=== PATIENT | male | born 1930 | race Caucasian/White ===

== ENCOUNTER 2018-04-03 10:27 | Inpatient (IN) | payer MEDICARE, BC ==
[~2018-04-03] VITALS: Ht 177.8 cm; Wt 120.3 kg
[~2018-04-03 10:27] MED LIST: ALEVE 220MG220 MG PO; ASPIRIN E.C. 8181 MG PO; ATARAX 25MG25 MG/TAB PO; ATIVAN 0.50.5 MG/TAB PO; CALCIUM 500 + D1 TAB PO; CRESTOR20 MG PO; FOLIC ACID 40400 MCG PO; GLUCOSAMINE & C1 CA1 PO; HALDOL .5M0.5 MG/TAB PO; HYDROXYZINE HCL25 MG PO; HYZAAR 25 MG-101 TAB PO; IMDUR 60MG60 MG/TAB PO; IRON TABLETS325 MG PO; ISOTRATE ER60 MG PO; LIDODERM PATCH TP; METOPROLOL SUCC50 M1 PO; MIRALAX119G PO; NIACIN500 M1 PO; NIACIN500 MG PO; NORCO 325 MG-51 TAB PO; OMEGA-3 FISH1200 MG PO; RELAFEN750 MG PO; REMERON30 MG PO; SINGULAIR 110 MG/TAB PO; SINGULAIR10 MG PO; STOOL SOFTENER100 M2 PO; TOPROL XL 50MG50 MG PO; TYLENOL 325MG325 MG PO; ULTRAM 50MG TAB50 MG PO; VITAMIN C500 MG PO; XARELTO10 MG PO; ZOFRAN4 MG PO; ZYLOPRIM 100MG100 MG PO
[2018-04-20] MEDS ORDERED: ASPIRIN 81M81 MG/TA2 PO (17:24)
[2018-04-20] MEDS ORDERED: CALCIUM CITRAT950 MG (17:25)
[2018-04-20] MEDS ORDERED: FOLIC ACID 11 MG/TA1 PO (17:26)
[2018-04-20] MEDS ORDERED: MASON NATURAL1200 MG PO (17:26)
[2018-04-20] MEDS ORDERED: HYZAAR 25 MG-101 TAB PO (17:27)
[2018-04-20] MEDS ORDERED: GLUCOSAMINE SU500 M2 PO (17:27)
[2018-04-20] MEDS ORDERED: IMDUR 60MG60 MG/TAB PO (17:27)
[2018-04-20] MEDS ORDERED: SINGULAIR 110 MG/TAB PO (17:28)
[2018-04-20] MEDS ORDERED: TOPROL XL 50MG50 MG PO (17:28)
[2018-04-20] MEDS ORDERED: ALEVE 220MG220 MG PO (17:29)
[2018-04-20] MEDS ORDERED: CRESTOR20 MG PO (17:29)
[2018-04-20] MEDS ORDERED: NITROSTAT0.4 MG/TAB SL (17:29)
[2018-04-20] MEDS ORDERED: FLOMAX 0.40.4 MG/CAP PO (19:45)
[2018-04-20] MEDS ORDERED: ZYLOPRIM 100MG100 MG PO (19:45)
[2018-04-21] MEDS ORDERED: COZAAR100 MG PO (09:26)
[2018-04-21] MEDS ORDERED: MELAT3MGTAB PO (09:26)
[2018-04-21] MEDS ORDERED: NORVASC2.5 MG PO (09:27)
[2018-05-27] MEDS ORDERED: FERROUS SU325 MG/TAB PO (15:00)
[2018-05-27] MEDS ORDERED: REMERON 15M15 MG/TA1 PO (15:01)
[2018-05-27] MEDS ORDERED: VITAMIN C500 MG PO (15:01)
[2018-05-29] VITALS (11 sets, daily range): BP systolic 96–155; BP diastolic 43–73; PULSE 72–99; TEMP 97.7–98.2
[2018-05-30] VITALS (7 sets, daily range): BP systolic 99–137; BP diastolic 46–58; PULSE 75–101; TEMP 98.1–99.5
[2018-05-30 09:00] LABS: HEMATOCRIT 38.5 % (42.0-52.0); HEMOGLOBIN 12.2 g/dl (13.5-18.0)
[2018-05-31 05:14] VITALS: BP 129/59; PULSE 91; TEMP 98.3
[2018-05-31 07:56] VITALS: BP 125/57; PULSE 89; TEMP 98.3
[2018-05-31 11:10] VITALS: BP 116/51; PULSE 90; TEMP 98.6
[2018-05-31 15:45] VITALS: BP 120/71; PULSE 97; TEMP 98.7
[2018-05-31 22:00] VITALS: BP 140/59; PULSE 102; TEMP 98.5
[2018-06-01 03:00] VITALS: BP 127/60; PULSE 96; TEMP 98.5
[2018-06-01 05:42] VITALS: BP 122/54; PULSE 93; TEMP 98.6
[2018-06-01 08:00] VITALS: BP 140/62; PULSE 106; TEMP 100.4
[2018-06-01] MEDS ORDERED: XARELTO10 MG PO (11:49)
[2018-06-01] MEDS ORDERED: NORCO 325 MG-7.1 TAB PO (11:49)
[2018-06-01] MEDS ORDERED: ROXICODONE 55 MG/TAB PO (11:49)
[2018-06-01] MEDS ORDERED: SENOKOT S 50 MG1 TAB PO (11:50)
[2018-06-01] MEDS ORDERED: TYLENOL 325MG325 MG PO (11:51)
[2018-06-01 12:50] VITALS: BP 127/56; PULSE 86; TEMP 98.5
== END 2018-06-01 13:10 | DRG 470 ==
LOC: JCC 05-29 06:38
PROVIDERS: Orthopaedic Surgery; Physician Assistant
PROC: 0SRB01A Replacement of Left Hip Joint with Metal Synthetic Substitute, Uncemented, Open Approach (ICD-10-PCS; principal; 2018-05-29 09:00)
DX: M16.12 Unilateral primary osteoarthritis, left hip (principal); E78.00 Pure hypercholesterolemia, unspecified; I10 Essential (primary) hypertension; Z95.1 Presence of aortocoronary bypass graft
CPT/HCPCS: A9284; C1776; J0690; J2250; J2270; J2405; J2704; J7042; J7120

== ENCOUNTER 2018-04-20 16:23 | Observation (INO) | payer MEDICARE, BC ==
[~2018-04-20] VITALS: Ht 180.3 cm; Wt 121.6 kg
[2018-04-20 17:06] LABS: BASO % 0.6 % (0.0-2.0); EOS # 0.1 (0.0-0.7); EOS % 1.9 % (0-4.0); GRAN # 4.7 (1.4-6.5); GRAN % 67.5 % (42.2-75.2); HEMATOCRIT 42.7 % (42.0-52.0); HEMOGLOBIN 15.1 g/dl (13.5-18.0); LYMPH # 1.3 (1.2-3.4); LYMPH % 18.5 % (20.0-51.0); MEAN CELL VOLUME 89 fl (80.0-100.0); MEAN CORPUSCULAR HEMOGLOBIN 31 pg (27.0-31.0); MEAN CORPUSCULAR HGB CONC 35 g/dl (33.0-37.0); MEAN PLATELET VOLUME 8.5 fl (7.4-10.4); MONO # 0.8 (0.1-0.6); MONO % 11.2 % (1.7-9.3); PLATELET COUNT 211 K/mm3 (130-400); RED BLOOD COUNT 4.81 M/mm3 (4.20-5.60); REDCELL DISTRIBUTION WIDTH-CV 12.4 % (11.5-14.5)
[2018-04-20 17:12] LABS: ALBUMIN 4.1 gm/dL (3.5-5.0); BILIRUBIN,TOTAL 1.2 mg/dL (0.0-1.0); CALCIUM 9.2 mg/dL (8.4-10.2); CREATININE, serum 0.91 mg/dL (0.66-1.25); POTASSIUM 4.4 mmol/L (3.4-5.0); TOTAL PROTEIN 7.7 gm/dL (6.4-8.2)
[2018-04-20 17:17] LABS: COLLECTION METHOD CLEAN CATCH
[2018-04-20 17:24] LABS: PH 6 (5-8); SQUAMOUS EPITHELIAL None Seen /hpf; URINE APPEARANCE Clear; URINE BACTERIA None Seen /hpf; URINE BILIRUBIN Negative (NEGATIVE); URINE BLOOD Negative (NEGATIVE); URINE COLOR Yellow; URINE GLUCOSE Negative (NEGATIVE); URINE KETONE Negative (NEGATIVE); URINE LEUKOCYTE ESTERASE Negative (NEGATIVE); URINE NITRATE Negative (NEGATIVE); URINE PROTEIN(semi-quant) 1+ (NEGATIVE); URINE RBC 0-2 /hpf; URINE UROBILINOGEN Negative (NEGATIVE)
[2018-04-20] MEDS ORDERED: ASPIRIN 81M81 MG/TA2 PO (17:24)
[2018-04-20] MEDS ORDERED: CALCIUM CITRAT950 MG (17:25)
[2018-04-20] MEDS ORDERED: FOLIC ACID 11 MG/TA1 PO (17:26)
[2018-04-20] MEDS ORDERED: MASON NATURAL1200 MG PO (17:26)
[2018-04-20] MEDS ORDERED: HYZAAR 25 MG-101 TAB PO (17:27)
[2018-04-20] MEDS ORDERED: IMDUR 60MG60 MG/TAB PO (17:27)
[2018-04-20] MEDS ORDERED: GLUCOSAMINE SU500 M2 PO (17:27)
[2018-04-20] MEDS ORDERED: SINGULAIR 110 MG/TAB PO (17:28)
[2018-04-20] MEDS ORDERED: TOPROL XL 50MG50 MG PO (17:28)
[2018-04-20] MEDS ORDERED: NITROSTAT0.4 MG/TAB SL (17:29)
[2018-04-20] MEDS ORDERED: CRESTOR20 MG PO (17:29)
[2018-04-20] MEDS ORDERED: ALEVE 220MG220 MG PO (17:29)
[2018-04-20] MEDS ORDERED: ZYLOPRIM 100MG100 MG PO (19:45)
[2018-04-20] MEDS ORDERED: FLOMAX 0.40.4 MG/CAP PO (19:45)
[2018-04-20 21:05] LABS: CALCIUM 9.3 mg/dL (8.4-10.2); CREATININE, serum 0.9 mg/dL (0.66-1.25); POTASSIUM 4.2 mmol/L (3.4-5.0)
[2018-04-20 21:37] VITALS: BP 152/76; PULSE 83; TEMP 97.7
[2018-04-20 21:43] VITALS: BP 152/76; PULSE 83; TEMP 97.7
[2018-04-21 00:04] VITALS: BP 165/76; PULSE 86; TEMP 97.8
[2018-04-21 03:25] VITALS: BP 152/79; PULSE 81; TEMP 97.7
[2018-04-21 04:22] LABS: BASO # 0.1 (0.0-0.2); BASO % 0.8 % (0.0-2.0); EOS # 0.2 (0.0-0.7); EOS % 3.4 % (0-4.0); GRAN # 4.1 (1.4-6.5); GRAN % 63.7 % (42.2-75.2); HEMATOCRIT 43.3 % (42.0-52.0); HEMOGLOBIN 14.5 g/dl (13.5-18.0); LYMPH # 1.3 (1.2-3.4); LYMPH % 19.7 % (20.0-51.0); MEAN CELL VOLUME 93 fl (80.0-100.0); MEAN CORPUSCULAR HEMOGLOBIN 31 pg (27.0-31.0); MEAN CORPUSCULAR HGB CONC 34 g/dl (33.0-37.0); MEAN PLATELET VOLUME 8.6 fl (7.4-10.4); MONO # 0.8 (0.1-0.6); MONO % 12.2 % (1.7-9.3); PLATELET COUNT 209 K/mm3 (130-400); RED BLOOD COUNT 4.65 M/mm3 (4.20-5.60); REDCELL DISTRIBUTION WIDTH-CV 12.7 % (11.5-14.5)
[2018-04-21 04:37] LABS: CALCIUM 8.6 mg/dL (8.4-10.2); CREATININE, serum 0.94 mg/dL (0.66-1.25); POTASSIUM 4.4 mmol/L (3.4-5.0)
[2018-04-21 07:59] VITALS: BP 138/76; PULSE 93; TEMP 98.2
[2018-04-21] MEDS ORDERED: COZAAR100 MG PO (09:26)
[2018-04-21] MEDS ORDERED: MELAT3MGTAB PO (09:26)
[2018-04-21] MEDS ORDERED: NORVASC2.5 MG PO (09:27)
[2018-04-21 09:58] LABS: CALCIUM 8.3 mg/dL (8.4-10.2); CREATININE, serum 0.85 mg/dL (0.66-1.25); POTASSIUM 4.4 mmol/L (3.4-5.0)
== END 2018-04-21 11:30 | disposition home or self-care (01) ==
LOC: COL.ER 16:23 → MEDICAL 18:27
PROVIDERS: Emergency Medicine; Nurse Practitioner Family
DX: G47.30 Sleep apnea, unspecified (principal); I25.10 Atherosclerotic heart disease of native coronary artery without angina pectoris; Z95.1 Presence of aortocoronary bypass graft; I10 Essential (primary) hypertension; E78.5 Hyperlipidemia, unspecified; N40.0 Benign prostatic hyperplasia without lower urinary tract symptoms; M10.9 Gout, unspecified; Z90.49 Acquired absence of other specified parts of digestive tract; Z96.651 Presence of right artificial knee joint; Z79.82 Long term (current) use of aspirin; Z87.891 Personal history of nicotine dependence; Z88.8 Allergy status to other drugs, medicaments and biological substances
CPT/HCPCS: G0378; J7030

== ENCOUNTER → 2018-05-21 | Outpatient (CLI) | payer MEDICARE, BC ==
[~2018-05-21] MED LIST changes: +ASPIRIN 81M81 MG/TA2 PO; +CALCIUM CITRAT950 MG; +COZAAR100 MG PO; +FLOMAX 0.40.4 MG/CAP PO; +FOLIC ACID 11 MG/TA1 PO; +GLUCOSAMINE SU500 M2 PO; +MASON NATURAL1200 MG PO; +MELAT3MGTAB PO; +NITROSTAT0.4 MG/TAB SL; +NORVASC2.5 MG PO
== END ==
LOC: COL.LAB 14:50
DX: Z96.642 Presence of left artificial hip joint (principal)

== ENCOUNTER 2018-06-01 11:31 | Inpatient (IN) | payer MEDICARE, BC ==
[~2018-06-01] VITALS: Ht 177.8 cm; Wt 123.0 kg
[~2018-06-01 11:31] MED LIST changes: +FERROUS SU325 MG/TAB PO; +REMERON 15M15 MG/TA1 PO
[2018-06-01] MEDS ORDERED: ROXICODONE 55 MG/TAB PO (11:49)
[2018-06-01] MEDS ORDERED: NORCO 325 MG-7.1 TAB PO (11:49)
[2018-06-01] MEDS ORDERED: XARELTO10 MG PO (11:49)
[2018-06-01] MEDS ORDERED: SENOKOT S 50 MG1 TAB PO (11:50)
[2018-06-01] MEDS ORDERED: TYLENOL 325MG325 MG PO (11:51)
[2018-06-01 13:42] VITALS: BP 112/60; PULSE 91; TEMP 98.5
[2018-06-01 18:21] VITALS: BP 137/61; PULSE 95; TEMP 98.9
[2018-06-02 06:45] VITALS: BP 113/81; PULSE 108; TEMP 98
[2018-06-02 17:36] VITALS: BP 129/64; PULSE 103; TEMP 98.4
[2018-06-03 06:30] VITALS: BP 147/69; PULSE 98; TEMP 98.5
[2018-06-03 07:36] LABS: BASO % 0.4 % (0.0-2.0); EOS # 0.5 (0.0-0.7); EOS % 7.3 % (0-4.0); GRAN # 4.9 (1.4-6.5); HEMATOCRIT 39.8 % (42.0-52.0); HEMOGLOBIN 12.6 g/dl (13.5-18.0); LYMPH # 0.7 (1.2-3.4); LYMPH % 10.4 % (20.0-51.0); MEAN CELL VOLUME 97 fl (80.0-100.0); MEAN CORPUSCULAR HEMOGLOBIN 31 pg (27.0-31.0); MEAN CORPUSCULAR HGB CONC 32 g/dl (33.0-37.0); MEAN PLATELET VOLUME 8.6 fl (7.4-10.4); MONO # 0.9 (0.1-0.6); MONO % 12.6 % (1.7-9.3); PLATELET COUNT 242 K/mm3 (130-400); REDCELL DISTRIBUTION WIDTH-CV 12.8 % (11.5-14.5)
[2018-06-03 07:57] LABS: CALCIUM 8.6 mg/dL (8.4-10.2); CREATININE, serum 0.81 mg/dL (0.66-1.25); MAGNESIUM 1.9 mg/dL (1.6-2.3); POTASSIUM 3.9 mmol/L (3.4-5.0)
[2018-06-03 18:33] VITALS: BP 132/62; PULSE 96; TEMP 98.4
[2018-06-04 03:30] VITALS: BP 157/72; PULSE 110; TEMP 98.2
[2018-06-04 15:40] VITALS: BP 124/43; PULSE 102; TEMP 98.2
[2018-06-05 06:00] VITALS: BP 143/66; PULSE 97; TEMP 98.6
[2018-06-05 16:22] VITALS: BP 136/58; PULSE 96; TEMP 97.9
[2018-06-06 03:44] VITALS: BP 160/62; PULSE 101; TEMP 98.2
[2018-06-06 18:34] VITALS: BP 140/59; PULSE 96; TEMP 98
[2018-06-07 06:46] VITALS: BP 151/63; PULSE 93; TEMP 98.7
[2018-06-07 18:45] VITALS: BP 149/49; PULSE 92; TEMP 98.7
[2018-06-08 05:23] VITALS: BP 138/68; PULSE 105; TEMP 98
[2018-06-08 17:39] VITALS: BP 148/55; PULSE 97; TEMP 97.7
[2018-06-09 05:04] VITALS: BP 158/67; PULSE 97; TEMP 97.8
[2018-06-09 18:00] VITALS: BP 145/61; PULSE 84; TEMP 98.3
[2018-06-10 03:41] VITALS: BP 147/74; PULSE 76; TEMP 98.1
[2018-06-10] MEDS ORDERED: ROXICODONE 55 MG/TAB PO (09:54)
[2018-06-10] MEDS ORDERED: PROAIR HFA0.09 MG/AC IH (10:07)
== END 2018-06-10 13:55 | disposition home health service (06) | DRG 561 ==
PROVIDERS: Internal Medicine
DX: Z47.1 Aftercare following joint replacement surgery (principal); Z96.642 Presence of left artificial hip joint; M16.12 Unilateral primary osteoarthritis, left hip; I10 Essential (primary) hypertension; I25.10 Atherosclerotic heart disease of native coronary artery without angina pectoris; Z95.1 Presence of aortocoronary bypass graft; E78.5 Hyperlipidemia, unspecified; Z87.891 Personal history of nicotine dependence; G47.33 Obstructive sleep apnea (adult) (pediatric)
CPT/HCPCS: 99222-AI; 99232-AI; 99239

== ENCOUNTER → 2018-07-06 | Outpatient (CLI) | payer MEDICARE, BC ==
[~2018-07-06] MED LIST changes: +NORCO 325 MG-7.1 TAB PO; +PROAIR HFA0.09 MG/AC IH; +ROXICODONE 55 MG/TAB PO; +SENOKOT S 50 MG1 TAB PO
== END ==
LOC: COL.RAD 10:39
DX: R41.82 Altered mental status, unspecified (principal)

== ENCOUNTER 2019-06-23 21:38 | Inpatient (IN) | payer MEDICARE, BC ==
[~2019-06-23] VITALS: Ht 182.9 cm; Wt 121.2 kg
[2019-06-23 22:20] LABS: COLLECTION METHOD CLEAN CATCH
[2019-06-23 22:25] LABS: PH 6 (5-8); SQUAMOUS EPITHELIAL 0-2 /hpf; URINE APPEARANCE Clear; URINE BACTERIA None Seen /hpf; URINE BILIRUBIN Negative (NEGATIVE); URINE BLOOD 2+ (NEGATIVE); URINE COLOR Straw; URINE GLUCOSE Negative (NEGATIVE); URINE KETONE Negative (NEGATIVE); URINE LEUKOCYTE ESTERASE Negative (NEGATIVE); URINE NITRATE Negative (NEGATIVE); URINE PROTEIN(semi-quant) 2+ (NEGATIVE); URINE RBC 0-2 /hpf; URINE UROBILINOGEN Negative (NEGATIVE)
[2019-06-23 22:39] LABS: BASO % 0.3 % (0.0-2.0); EOS # 0.1 (0.0-0.7); EOS % 0.5 % (0-4.0); GRAN # 8.3 (1.4-6.5); GRAN % 79.5 % (42.2-75.2); HEMATOCRIT 49.5 % (42.0-52.0); HEMOGLOBIN 15.8 g/dl (13.5-18.0); LYMPH # 1.1 (1.2-3.4); LYMPH % 10.3 % (20.0-51.0); MEAN CELL VOLUME 98 fl (80.0-100.0); MEAN CORPUSCULAR HEMOGLOBIN 31 pg (27.0-31.0); MEAN CORPUSCULAR HGB CONC 32 g/dl (33.0-37.0); MEAN PLATELET VOLUME 8.9 fl (7.4-10.4); MONO # 0.9 (0.1-0.6); PLATELET COUNT 196 K/mm3 (130-400); RED BLOOD COUNT 5.06 M/mm3 (4.20-5.60); REDCELL DISTRIBUTION WIDTH-CV 13.6 % (11.5-14.5)
[2019-06-23 22:45] LABS: PROTHROMBIN TIME 11.1 SECONDS (9.7-12.8)
[2019-06-23 22:58] LABS: ALANINE AMINOTRANSFERASE 14 U/L (21-72); ALBUMIN 4.4 gm/dL (3.5-5.0); ALKALINE PHOSPHATASE 59 U/L (50-136); ANION GAP 8 mmol/L (7-16); AST,SGOT 30 U/L (15-37); BILIRUBIN,TOTAL 0.6 mg/dL (0.0-1.0); BLOOD UREA NITROGEN 21 mg/dL (9-20); CALCIUM 9.4 mg/dL (8.4-10.2); CARBON DIOXIDE 33 mmol/L (22-30); CHLORIDE 97 mmol/L (98-107); CREATININE, serum 1.27 (0.66-1.25); GLUCOSE 112 mg/dL (74-106); POTASSIUM 4.3 mmol/L (3.4-5.0); SODIUM 138 mmol/L (137-145)
[2019-06-23 23:10] LABS: C-REACTIVE PROTEIN < 0.5 mg/dL (0.0-0.9); TROPONIN-I 0.091 ng/mL (0.000-0.035)
[2019-06-24] VITALS (13 sets, daily range): BP systolic 76–153; BP diastolic 39–97; PULSE 66–99; TEMP 97.9–98.5
[2019-06-24] MEDS ORDERED: ASPIRIN 32325 MG/TAB PO (04:29)
[2019-06-24] MEDS ORDERED: TYLENOL 500MG500 MG PO (04:48)
[2019-06-24] MEDS ORDERED: MIRALAX PA17 GM/Dose PO (04:50)
[2019-06-24] MEDS ORDERED: COLACE 100100 MG/CAP PO (05:34)
[2019-06-24] MEDS ORDERED: MELATONIN5 M1 SL (05:35)
[2019-06-24] MEDS ORDERED: CRESTOR 10MG10 MG PO (05:39)
[2019-06-24] MEDS ORDERED: PROAIR HFA0.09 MG/AC IH (05:40)
[2019-06-24] MEDS ORDERED: SALINE 45 ML45 ML NS (05:41)
[2019-06-24] MEDS ORDERED: THERATEARS 0.60.6 ML OP (05:44)
[2019-06-24 07:08] LABS: BASO % 0.3 % (0.0-2.0); EOS # 0.1 (0.0-0.7); EOS % 1.4 % (0-4.0); GRAN # 5.3 (1.4-6.5); GRAN % 69.3 % (42.2-75.2); HEMATOCRIT 46.4 % (42.0-52.0); HEMOGLOBIN 14.7 g/dl (13.5-18.0); LYMPH # 1.2 (1.2-3.4); LYMPH % 16.3 % (20.0-51.0); MEAN CELL VOLUME 100 fl (80.0-100.0); MEAN CORPUSCULAR HEMOGLOBIN 32 pg (27.0-31.0); MEAN CORPUSCULAR HGB CONC 32 g/dl (33.0-37.0); MEAN PLATELET VOLUME 9.1 fl (7.4-10.4); MONO # 0.9 (0.1-0.6); MONO % 12.4 % (1.7-9.3); PLATELET COUNT 190 K/mm3 (130-400); RED BLOOD COUNT 4.66 M/mm3 (4.20-5.60); REDCELL DISTRIBUTION WIDTH-CV 13.6 % (11.5-14.5)
[2019-06-24 07:20] LABS: CHOLESTEROL RISK RATIO 4.4; CREATININE, serum 1.07 (0.66-1.25); POTASSIUM 4.2 mmol/L (3.4-5.0)
[2019-06-24 07:29] LABS: TROPONIN-I 6 HR POST INITIAL 0.153 ng/mL (0.000-0.034)
--- NOTE | 2019-06-24 09:00 | NUR ---
JERARDO weems met with the patient and the patient's , Ananya to discuss a discharge plan. The patient lives in [place] with Ananya. The patient uses continous oxygen and receives O2 supplies from a company in [place] and has a CPAP. The patient has a walker, cane and scooter. The patient reports independence with ADLs but requires assistance from his to put on socks. The patient has outpatient physical therapy in [place] and has had home health services in the past with [facility]. If home health is recommended the patient would like to use [facility]. The patient's PCP is Dr. 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 The patient has advanced directives in the EMR. clinical services manager will continue to follow to ensure a safe discharge.
--- NOTE | 2019-06-24 12:39 | NUR ---
Initial visit; Patient and his thanked Rubber Mixer for looking in on [place] and offering prayer and God's blessings for a speedy and thorough recovery.
--- NOTE | 2019-06-25 02:11 | NUR ---
Patient alert and oriented at the beginning of the shift. About 2200 patient started sundowning and was taking off his gown and his telemetry. Patient stated he was hot and he wanted to go home because he couldn't get comfortable. Attempted to reposition patient and put his telemetry back on. at bedside and appears frustrated. States he has tried multiple medications to help him sleep, but some has "made him crazy". states he was grabbing at the air and was agitated with a medication when he was here last time after he took a medication. After some diving into his chart, it appears patient would sundown, but they attempted Seroquel and there wasn't any notes made about adverse reactions. Called Bev and she ordered Seroquel, then spoke with patient's and she stated she would rather him take Melatonin first before trying the seroquel. Bev notified and ordered Melatonin for him. Patient took this medication. Awaiting results at this time.
[2019-06-25 04:00] VITALS: BP 148/79; PULSE 87; TEMP 98
--- NOTE | 2019-06-25 04:31 | NUR ---
Patient noted to pull his telemetry off and pulled his IV out. No bleeding noted from IV site. New site (20G) placed to left forearm. Patient tolerated this well and stayed asleep during the process. Telemetry was placed back on patient. Will continue to monitor.
--- NOTE | 2019-06-25 06:29 | NUR ---
Patient noted to be very restless this morning, even with eyes closed. asleep at bedside. Patient reminded that its night time and still time to sleep. Has not tried to exit bed this morning, but does move feet around in the bed. Will give report to day shift nurse.
[2019-06-25 06:39] LABS: BASO % 0.5 % (0.0-2.0); EOS # 0.2 (0.0-0.7); EOS % 2.1 % (0-4.0); GRAN # 5.5 (1.4-6.5); GRAN % 71.9 % (42.2-75.2); LYMPH % 13.3 % (20.0-51.0); MEAN CELL VOLUME 100 fl (80.0-100.0); MEAN CORPUSCULAR HEMOGLOBIN 31 pg (27.0-31.0); MEAN CORPUSCULAR HGB CONC 31 g/dl (33.0-37.0); MEAN PLATELET VOLUME 8.9 fl (7.4-10.4); MONO # 0.9 (0.1-0.6); MONO % 11.8 % (1.7-9.3); PLATELET COUNT 179 K/mm3 (130-400); REDCELL DISTRIBUTION WIDTH-CV 13.6 % (11.5-14.5)
[2019-06-25 06:46] LABS: CALCIUM 8.4 mg/dL (8.4-10.2); CREATININE, serum 0.89 (0.66-1.25); MAGNESIUM 1.8 mg/dL (1.6-2.3); POTASSIUM 3.9 mmol/L (3.4-5.0)
--- NOTE | 2019-06-25 07:00 | NUR ---
Report received from DUARTE Adame. Pt in bed resting with CPAP in place. Awakens upon entry, at bedside, states he did not sleep last night. Will continue to monitor.
[2019-06-25 07:58] VITALS: BP 159/74; PULSE 88; TEMP 97.8
--- NOTE | 2019-06-25 10:34 | NUR ---
Assessment charted. Pt awake, answers all orientation qeustions correctly, lethargic and drowsy now from not sleeping all night. Pt states this has been an ongoing issue for him for some time, states they had a "horrible night, he was up pulling on things and trying to derobe all night". Consent completed for loop recorder but pt had trouble recalling the conversation with Dr. Lewis about the procedure. Bruising present on back, upper sacrem, left inner aspect of elbow, and legs. Per family pt has been falling recently at home. BLE reddened from dependent rubor but good pulses. HR irregular. IVF to RFA. Pain is 4/10 to low back. Assisted wtih 3 people to get to stand up and provide pericare, pt did do well, legs maintained throughout but pt wary of having legs give out. Will continue to monitor.
--- NOTE | 2019-06-25 12:08 | NUR ---
Physical therapy is recommending post acute rehab. Social Workers met with the patient and the patient's , Ananya to discuss placement. The patient was sleeping. Patient's first choice is [facility], second choice is [facility], third choice is [facility] and fourth choice is [facility]. SW faxed referrals. director patient financial services will continue to follow to ensure safe discharge.
[2019-06-25 13:06] VITALS: BP 115/53; PULSE 89; TEMP 97.9
--- NOTE | 2019-06-25 13:37 | NUR ---
Digital Media Producer met with the patient and his , Ananya (ph#[phone]) to discuss discharge planning. SW advised that [facility] can accept on Friday and [facility] can accept anytime. Ananya states their preference is still [facility]. MAURISIO collaborated the above information with the patient's nurse and nurse practitioner. MAURISIO will continue to follow.
[2019-06-25 16:16] VITALS: BP 117/60; PULSE 82; TEMP 97.5
--- NOTE | 2019-06-25 16:35 | NUR ---
Jet Piercer Operator contacted [facility], [facility], and [facility] to update them on patient preference.
--- NOTE | 2019-06-25 17:46 | NUR ---
Pt resting in chair at side of bed eating supper. at bedside, assisting pt as needed. Pt has slid down in chair off and on all day, when trying to get him to scoot up in chair with proper cueing he is able to do so but needs a lot of encouragement. Lotion applied to leg and xeroform and square mepilex to left kneecap where pt has healing closed scab that he finds irritating. Chair alarm in place, will return to bed after supper, will give bedside shift report to nightshift nurse who will resume care.
[2019-06-25 20:00] VITALS: BP 134/62; PULSE 87; TEMP 98.1
[2019-06-26] VITALS: BP 131/65; PULSE 85; TEMP 98
[2019-06-26 04:00] VITALS: BP 121/72; PULSE 94; TEMP 98.1
--- NOTE | 2019-06-26 05:08 | NUR ---
Patient's agreed to try Seroquel at bedtime tonight and patient has slept well throughout the night. Noted to continue to pull at telemetry, but appears to be asleep while doing this. Does not attempt to get out of bed. Noted to be very drowsy, but is able to be aroused. Has kept CPAP on tonight. Overall, patient rested much better tonight than the night before. Incontinent cares provided. Patient took off occlusive dressing to loop recorder site. Site remains free from drainage at this time. Will continue to monitor.
[2019-06-26 06:35] LABS: CALCIUM 8.5 mg/dL (8.4-10.2); CREATININE, serum 0.98 (0.66-1.25); POTASSIUM 4.1 mmol/L (3.4-5.0)
[2019-06-26 07:39] VITALS: BP 104/87; PULSE 78; TEMP 97.4
--- NOTE | 2019-06-26 09:50 | NUR ---
Medicated with Tylenol per request for c/o generalized soreness and right hip pain after transfer to recliner chair. Hard of hearing. O2 on. Takes po meds well. Spouse in room.
[2019-06-26 11:50] VITALS: BP 94/66; PULSE 87; TEMP 97.9
--- NOTE | 2019-06-26 12:19 | NUR ---
White Sugar Boiler stopped by and offered prayer and support with spouse in room.
--- NOTE | 2019-06-26 15:50 | NUR ---
f/u: Faxed updates to [facility] and [facility]. No confirmation of discharge, both places inquiring about D?C. Placement will need to be confirmed.
[2019-06-26 16:18] VITALS: BP 124/50; PULSE 86; TEMP 98
--- NOTE | 2019-06-26 18:00 | NUR ---
No c/o pain. Sleeps at intervals. Repositioned in bed with two staff. Family in room.
[2019-06-26 20:00] VITALS: BP 146/47; PULSE 88; TEMP 98.2
--- NOTE | 2019-06-26 20:45 | NUR ---
Patient is slightly confused. Fall percautions in place including bed alarm. Additional dressing placed over loop recorder site as well as IV site. Patient is utilizing tylenol for pain relief. No complaints of nausea or vomiting.
[2019-06-27] VITALS: BP 142/97; PULSE 74; TEMP 98.3
[2019-06-27 04:00] VITALS: BP 125/47; PULSE 83; TEMP 98.2
[2019-06-27 08:10] VITALS: BP 118/42; PULSE 85; TEMP 97.4
[2019-06-27 12:42] VITALS: BP 111/45; PULSE 88; TEMP 98.4
--- NOTE | 2019-06-27 13:46 | NUR ---
cold storage worker faxed medical updates to [facility] ([phone]) and [facility] ([phone]) including facesheet, nursing/progress notes, cardiology/oxygen/physical therapy notes, and medications.
[2019-06-27 16:31] VITALS: BP 114/49; PULSE 80; TEMP 98.2
--- NOTE | 2019-06-27 18:37 | NUR ---
Patient laying in bed upon shift assessment this morning. Patient is very hard of hearing and often needs things repeated multiple times. Hearing aid is in and on but still has difficulty at times. Patient voided in urinal throughout shift. Complains of right hip pain on and off throughout shift. Tylenol has provided adequate pain coverage. Patient pulled IV out of left forearm this afternoon stating he "needed to get ready to go home." Charge nurse placed new IV to right wrist. Patient seemed to have increased confustion this afternoon/evening. Dr. Hodges notified. Orders for additional dose of Seroquel received Dr. Hodges came and talked with patient to reinforce that he will remain in the hospital this evening and go to rehab tomorrow. Patient calm since this time. will again stay with patient this evening.
[2019-06-27 20:41] VITALS: BP 112/57; PULSE 92; TEMP 97.5
--- NOTE | 2019-06-27 21:00 | NUR ---
Patient drowsy from previous dose of Seroquel. Bed change done due to incontinence. Applied Nystatin to groin and barrier cream to buttock crease due to redness. Patient takes HS meds with minimal difficulty. Spouse at bedside.
[2019-06-28] VITALS: BP 114/36; PULSE 80; TEMP 98.3
--- NOTE | 2019-06-28 02:29 | NUR ---
Patient has CPAP on, slightly restless and takes gown off, no attempts to get out of bed. at bedside.
[2019-06-28 04:09] VITALS: BP 139/49; PULSE 89; TEMP 97.6
[2019-06-28 06:36] LABS: BASO % 0.6 % (0.0-2.0); EOS # 0.3 (0.0-0.7); EOS % 5.8 % (0-4.0); GRAN # 3.1 (1.4-6.5); GRAN % 60.8 % (42.2-75.2); HEMATOCRIT 42.7 % (42.0-52.0); HEMOGLOBIN 12.8 g/dl (13.5-18.0); LYMPH % 19.8 % (20.0-51.0); MEAN CELL VOLUME 102 fl (80.0-100.0); MEAN CORPUSCULAR HEMOGLOBIN 31 pg (27.0-31.0); MEAN CORPUSCULAR HGB CONC 30 g/dl (33.0-37.0); MEAN PLATELET VOLUME 8.9 fl (7.4-10.4); MONO # 0.7 (0.1-0.6); MONO % 12.6 % (1.7-9.3); PLATELET COUNT 178 K/mm3 (130-400); RED BLOOD COUNT 4.18 M/mm3 (4.20-5.60); REDCELL DISTRIBUTION WIDTH-CV 13.2 % (11.5-14.5)
[2019-06-28 06:45] LABS: CALCIUM 8.9 mg/dL (8.4-10.2); CREATININE, serum 0.97 (0.66-1.25); POTASSIUM 4.4 mmol/L (3.4-5.0)
--- NOTE | 2019-06-28 06:55 | NUR ---
appears to be dozinz with CPAP on, awakens easily, bedside shift report received from DUARTE Chandra
--- NOTE | 2019-06-28 07:00 | NUR ---
Takes AM med without problem. Is alert this AM.
[2019-06-28] MEDS ORDERED: CEPHALEXIN500 M1 PO (08:02)
[2019-06-28] MEDS ORDERED: TYLENOL 325MG325 MG PO (08:04)
[2019-06-28] MEDS ORDERED: NYSTATIN CREAM15 GM TP (08:05)
[2019-06-28] MEDS ORDERED: MELATIN 3 MG-11 TAB PO (08:06)
[2019-06-28 08:32] VITALS: BP 136/58; PULSE 93; TEMP 97.3
--- NOTE | 2019-06-28 08:51 | NUR ---
repositioned up in bed and am meds given, full assessment completed, see interventions for further info, Dr Hodges and care team in to see patient, breakfast here and at bedside
[2019-06-28] MEDS ORDERED: SEROQUEL 2525 MG/TAB PO ×2 (09:02)
--- NOTE | 2019-06-28 09:56 | NUR ---
The patient is to discharge today, 06/28 to [facility] for a jail stay. MAURISIO presented the IM form to the patient and the patient's , Ananya. The patient and the patient's understood the form. Patient's signed the form. A copy was provided to the patient and the original was placed in the patient's chart. [facility] can transport the patient in-between [id number]. MAURISIO informed the patient, patient's and patient's nurse. There are no additional needs at this time.
--- NOTE | 2019-06-28 10:15 | NUR ---
assisted patient with am hygiene and dressed for discharge, has bruising to his back and down the left arm which is also edematous, denies pain with movement, has some redness to groin and rectum from moisture and nystatin creanm applied,
--- NOTE | 2019-06-28 10:44 | NUR ---
physical therapy in and worked with patient, assisted up and he then ambulated to the other side of the bed and into recliner with slow but steady gait, remains at bedside
[2019-06-28 10:49] VITALS: BP 136/58; PULSE 93; TEMP 97.3
[2019-06-28 11:19] VITALS: BP 148/67; PULSE 96; TEMP 98.4
--- NOTE | 2019-06-28 11:36 | NUR ---
remains up in [facility] waiting for transfer to [facility], denies needs
--- NOTE | 2019-06-28 12:35 | NUR ---
[facility] here for transfer, assisted into and discharged
--- NOTE | 2019-06-28 13:18 | NUR ---
report called to Tara at [facility]
== END 2019-06-28 12:35 | DRG 261 ==
LOC: COL.ER 21:38 → JCC 06-24 01:03
PROVIDERS: Emergency Medicine; Nurse Practitioner Family; ADMIT Hospitalist
PROC: 0JH632Z Insertion of Monitoring Device into Chest Subcutaneous Tissue and Fascia, Percutaneous Approach (ICD-10-PCS; principal; 2019-06-25)
DX: I21.4 Non-ST elevation (NSTEMI) myocardial infarction (principal); J96.11 Chronic respiratory failure with hypoxia; I47.1 Supraventricular tachycardia; N17.9 Acute kidney failure, unspecified; B37.89 Other sites of candidiasis; F05 Delirium due to known physiological condition; M79.662 Pain in left lower leg; I10 Essential (primary) hypertension; E78.5 Hyperlipidemia, unspecified; I25.10 Atherosclerotic heart disease of native coronary artery without angina pectoris; S80.212A Abrasion, left knee, initial encounter; I34.0 Nonrheumatic mitral (valve) insufficiency; G47.33 Obstructive sleep apnea (adult) (pediatric); N40.0 Benign prostatic hyperplasia without lower urinary tract symptoms; W18.30XA Fall on same level, unspecified, initial encounter; M10.9 Gout, unspecified; Y93.9 Activity, unspecified; Z95.1 Presence of aortocoronary bypass graft; Z96.641 Presence of right artificial hip joint; Z79.82 Long term (current) use of aspirin; Z87.891 Personal history of nicotine dependence; Z91.81 History of falling
CPT/HCPCS: 99231-AI; 99232-AI; 99239; A9500; J1644; J1650; J2785; J7030